=== PATIENT | female | born 1965 | race Caucasian/White ===

== ENCOUNTER → 2020-08-06 | Outpatient (CLI) | payer BC ==
[~2020-08-06] MED LIST: BIO IDENTICAL HORMON PO; METOPROLOL TAR100 MG PO; PAXIL20 MG PO; VITAMIN D21250 MC1 PO
[2020-08-06 13:42] LABS: HEMATOCRIT 42.3 % (37.0-47.0); HEMOGLOBIN 14.5 gm/dL (12.0-15.0); MCH 31.3 pg (26.0-34.0); MCHC 34.2 g/dL (28.0-37.0); MCV 91.4 fL (80.0-100.0); RBC 4.63 mil/uL (4.20-5.00); RDW 13.2 % (10.5-14.5); WBC 9.3 thou/uL (4.0-11.0)
[2020-08-06 13:43] LABS: URINE BLOOD NEGATIVE (Negative); URINE CLARITY CLOUDY; URINE COLOR YELLOW; URINE GLUCOSE-RANDOM* NEGATIVE (Negative); URINE KETONES 1+ (Negative); URINE LEUKOCYTES-REFLEX NEGATIVE (Negative); URINE NITRITE-REFLEX NEGATIVE (Negative); URINE PROTEIN (DIPSTICK) TRACE (Negative); URINE SPECIFIC GRAVITY >= 1.030 (1.005-1.035)
[2020-08-06 13:49] LABS: ICTOTEST (BILI CONFIRMATORY) Negative (Negative); URINE BILIRUBIN NEGATIVE (Negative)
[2020-08-06 14:01] LABS: INR 0.92; PROTIME 10.1 Seconds (10.5-12.1)
[2020-08-06 14:05] LABS: ALBUMIN 3.9 g/dL (3.4-5.0); CALCIUM 9.6 mg/dL (8.5-10.1); CREATININE 1.1 mg/dL (0.6-1.0); POTASSIUM 4.5 mmol/L (3.5-5.1)
--- NOTE | 2020-08-06 15:25 | EKG ---
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
== END ==
LOC: PAC 12:23 → EDSTATUS 15:51 → PAC 16:15
PROVIDERS: Student in an Organized Health Care Education/Training Program; ATTEND Orthopaedic Surgery
DX: Z01.812 Encounter for preprocedural laboratory examination (principal); Z20.822 Contact with and (suspected) exposure to COVID-19

== ENCOUNTER 2020-08-12 08:12 | Observation (INO) | payer BC ==
[~2020-08-12] VITALS: Ht 162.6 cm; Wt 104.3 kg
[2020-08-12 09:49] VITALS: BP 119/73
[2020-08-12] MEDS ORDERED: BAYER CHEWABLE81 MG PO (14:32)
[2020-08-12] MEDS ORDERED: HYDROCODON-ACE1 EAC7 PO (14:32)
[2020-08-12] MEDS ORDERED: NEURONTIN 300M300 M2 PO (14:33)
[2020-08-12] MEDS ORDERED: MS CONTIN15 MG PO (14:33)
--- NOTE | 2020-08-12 14:37 | O ---
[facility] [place] [address] OPERATIVE REPORT Name: RADHA GUNDERSON Room #: 459-P [facility] MMistiRMisti#: [id number] Admission: 08/12/20 Attend Phys: Estiven Mays MD Discharge: Date of : 63 Report #: [id number] THIS REPORT FOR: cc: Itz Alba MD, Neal A. MD Abraham,Estiven Caba MD ~ DOC #: [id number] Estiven Mays MD DATE OF SERVICE: 08/12/2020 PREOPERATIVE DIAGNOSIS: Left knee osteoarthritis. POSTOPERATIVE DIAGNOSIS: Left knee osteoarthritis. PROCEDURE: Left total knee arthroplasty using Navio robotic assistance. SURGEON: Estiven Mays MD ELECTRIC MOTOR WINDERS ASSEMBLER: Colleen Light PA-C INDICATION FOR ELECTRIC MOTOR WINDERS ASSEMBLER: Throughout the case, extensive retraction, manipulation of the knee was required, this is supported by my assistant dean. ANESTHESIA: LMA with adductor canal block. IMPLANTS: [employer] size 5 Journey II BCS Oxinium femur, size 3 tibia, size 13 constrained polyethylene and size 32 patella. TOURNIQUET TIME: 53 minutes. ESTIMATED BLOOD LOSS: 25 mL. COMPLICATIONS: None. SPECIMENS: None. CONDITION UPON LEAVING THE OR: Stable. INDICATIONS FOR PROCEDURE: The patient is a 55-year-old female with severe left knee osteoarthritis. She failed conservative measures for this and after discussion with her, she elected for left total knee arthroplasty. DESCRIPTION OF PROCEDURE: Risks, benefits, alternatives, and complications were discussed in detail with the patient including but not limited to risk of anesthesia, risk of damage to nerves, arteries, blood vessels, risk for infection, bleeding, risk for continued knee pain, need for reoperation. [facility] [address] [place] [address] OPERATIVE REPORT Name: RADHA GUNDERSON Room #: 459-P [facility] Kris Diallo#: [id number] Admission: 08/12/20 Attend Phys: Estiven Mays MD Discharge: Date of : 63 Report #: [id number] Informed consent was obtained from the patient. Left knee was appropriately marked in the preoperative holding area. IV Ancef was given for preoperative antibiotics. She was brought to the operating room and placed in supine position on the operating room table. LMA anesthesia was induced without complication. Tourniquet was placed on the left thigh. Left lower extremity was prepped and draped in normal sterile fashion. Timeout was performed properly identifying the patient and procedure as well as the instrumentation and implants. All in the operating room in agreement. Left lower extremity was exsanguinated and tourniquet inflated. Tourniquet time was 53 minutes. Standard midline approach to knee was made with 10 blade through the skin. Dissection was taken down sharply to the fascia and deep flaps were developed medially and laterally. Fresh 10 blade was used to make a medial parapatellar arthrotomy and the knee was inspected. There were severe medial compartment osteoarthritis with moderate lateral and patellofemoral osteoarthritis. ACL and PCL were removed sharply. Reference pins were placed in the femur and the tibia. The knee was then digitally mapped using the [employer] robotic system. Intraoperative plan was made. We sized the size 5 femur, size 3 tibia and a 10 spacer after acceptance of the intraoperative plan. The distal femoral cut was made with Navio bur. Distal femoral cutting block was pinned in place and chamfer cuts were made. Attention was turned to the tibia. Remainder of the menisci removed with Bovie cautery. Tibial resection guide was pinned in place using the Navio for placement and tibial resection was made. Flexion and extension gaps were then checked and found to have good balance in flexion and extension both medially and laterally. Tibia sized found to be a size 3. Size 3 tibial trial was placed, pinned and punched. Size 5 femoral trial was placed and the box cut was made. This was then trialed with an 11 up to a size 13 polyethylene. Size 13 polyethylene demonstrated good balance medially and laterally. She was somewhat loose up to 4 mm in deep flexion laterally. It was felt we can make up for this with a constrained implant, 9 mm of bone was resected from the posterior surface of the patella and a size 32 patellar trial button was placed. Knee was taken through range of motion, found to be stable, found to have good patellar tracking. Trial components were removed. Bone ends were thoroughly irrigated with normal saline. Final size 3 tibia, size 5 Journey II BCS Oxinium femur, size 32 patella were cemented in place using standard cementation techniques. While the cement cured, a periarticular injection consisting of morphine, ropivacaine, epinephrine, Toradol was placed around the knee joint capsule. After the cement cured, tourniquet was deflated. Hemostasis was obtained with Bovie cautery. Final size 13 constrained polyethylene was placed. A gram of vancomycin was placed deep in the joint. Fascia was closed with 0 Vicryl. Skin was closed with 2-0 Vicryl. Skin staple and a STEVEN dressing was applied. The patient tolerated this procedure well and went to recovery room under care of anesthesia postoperatively. Estiven Mays MD [facility]/[address] [address] OPERATIVE REPORT Name: RADHA GUNDERSON Room #: 459-P [facility] Kris Diallo#: [id number] Admission: 08/12/20 Attend Phys: Estiven Mays MD Discharge: Date of : 63 Report #: [id number] <ELECTRONICALLY SIGNED> By: Estiven Mays MD 08/12/20 1437 1253 1310 Estiven Mays MD /nt
--- NOTE | 2020-08-12 15:04 | NUR ---
PT ADMITTED RELATED TO LEFT TOTAL KNEE REPLACEMENT. CM REVIEWED CHART AND SPOKE WITH CARE TEAM. CM MET WITH PT AND DTR AT BEDSIDE THIS DAY. PT APPEARED TO BE A&O X4. CM ROLE INTRODUCED. PT INDICATED SHE LIVES IN A HOUSE WITH HER SPOUSE AND DTR. PT INDICATED 1 STEP TO ENTER AND NO STEPS SHE WILL NEED TO NAVIGATE UPON DC. PT INDICATED SHE HAS A FWW FOR USE UPON DC AND IS SET UP WITH OP PT AT [facility]. CARE TEAM INDICATED THAT PT IS MEDICALLY STABLE TO DC HOME THIS DAY. NO OTHER CM INTERVENTION INDICATED. CASE CLOSED.
[2020-08-12 17:45] VITALS: BP 119/73
[2020-08-12 18:06] VITALS: BP 116/77
== END 2020-08-12 18:35 | disposition home or self-care (01) ==
LOC: OR 08:12 → TBA 12:04 → OR 12:19 → 4W 13:40 → OR 15:23 → 4W 18:35
PROVIDERS: ADMIT Orthopaedic Surgery; ATTEND Orthopaedic Surgery
DX: M17.12 Unilateral primary osteoarthritis, left knee (principal); I10 Essential (primary) hypertension; Z87.891 Personal history of nicotine dependence; Z79.899 Other long term (current) drug therapy
CPT/HCPCS: 50010; 50101; 50415; 50954; 51130; 51225; 51320; 51412; 52001; 52282; 53000; 53078; 53365; 56527; 56528; 57095; 57103; 57110; 57127; 57180; 62110; 62900; 64042; 70005